=== PATIENT | male | born 2000 | race Caucasian/White ===

== ENCOUNTER 2021-10-05 15:26 | Inpatient (IN) | payer OTHER ==
[~2021-10-05] VITALS: Ht 177.8 cm; Wt 75.3 kg
[2021-10-05 17:30] VITALS: BP 126/62
[2021-10-05] MEDS ORDERED: MELATONIN 3 MG TABLET PO PRN (17:30)
[2021-10-05] MEDS ORDERED: METHOCARBAMOL 500 MG TABLET PO PRN (17:45)
[2021-10-05] MEDS ORDERED: ONDANSETRON HCL 4 MG TABLET PO PRN (17:45)
[2021-10-05] MEDS ORDERED: OxyCODONE HCL 10 MG IR TABLET PO PRN (17:45)
[2021-10-05] MEDS ORDERED: OxyCODONE HCL 5 MG IR TABLET PO PRN (17:45)
[2021-10-05] MEDS ORDERED: MAGNESIUM HYDROXIDE SUSPENSION 30 ML UDCUP PO PRN (17:45)
[2021-10-05 18:50] VITALS: BP 126/62
[2021-10-05] MEDS: ACETAMINOPHEN 325 MG TABLET PO SCH ×2 (20:44→23:19)
[2021-10-05] MEDS: -LIDODERM PATCH NOTE- MISC SCH (21:54)
[2021-10-05] MEDS: DOCUSATE SODIUM 100 MG CAPSULE PO SCH (21:54)
[2021-10-05] MEDS: SENNA 187 MG TABLET PO SCH (21:54)
[2021-10-05] MEDS: GABAPENTIN 100 MG CAPSULE PO SCH (21:54)
[2021-10-05] MEDS: ETHYL ALCOHOL 62% ANTISEPTIC NASAL SANITIZER 0.6 ML AMPUL NASAL SCH (21:54)
[2021-10-05] MEDS: FAMOTIDINE 20 MG TABLET PO SCH (21:55)
[2021-10-05] MEDS: HEPARIN SODIUM,PORCINE 5,000 UNITS/ML VIAL SQ SCH (21:55)
[2021-10-06] VITALS: BP 112/54
[2021-10-06] MEDS: ACETAMINOPHEN 325 MG TABLET PO SCH ×4 (06:06→23:34)
[2021-10-06 07:25] LABS: EOSINOPHILS % (AUTO) 3.5 % (1.0-6.0); HEMATOCRIT 28.2 % (41-53); HEMOGLOBIN 9.7 g/dL (13.5-17.5); LYMPHOCYTES % (AUTO) 10.5 % (22.0-44.0); MEAN CORPUSCULAR HEMOGLOBIN 29.9 pg (26.0-34.0); MEAN CORPUSCULAR HGB CONC 34.5 G/dL (31.0-37.0); MEAN CORPUSCULAR VOLUME 87 fL (80-100); MONOCYTES % (AUTO) 9.2 % (2.0-9.0); NEUTROPHILS % (AUTO) 76.5 % (40.0-70.0); PLATELET COUNT (AUTO) 352 K/uL (150-450); RED BLOOD CELL COUNT(AUTO) 3.25 MIL/uL (4.50-5.90); RED CELL DISTRIBUTION WIDTH 13.6 % (11.5-14.5)
[2021-10-06 07:26] LABS: BASOPHILS % (AUTO) 0.3 % (0.0-2.0); LYMPHOCYTES # (AUTO) 0.8 K/uL (1.0-4.8); MONOCYTES # (AUTO) 0.7 K/uL (0.1-1.0); NEUTROPHILS # (AUTO) 5.6 K/uL (1.8-7.7)
[2021-10-06 07:31] LABS: ALANINE AMINOTRANSFERASE 140 U/L (12-78); ALBUMIN 3.5 g/dL (3.4-5.0); ALKALINE PHOSPHATASE 57 U/L (46-116); ANION GAP 9 mmol/L (8-16); ASPARTATE AMINOTRANSFERASE 50 U/L (15-37); BILIRUBIN,TOTAL 1.9 mg/dL (0.1-1.0); CALCIUM, TOTAL 9.4 mg/dL (8.8-10.5); CARBON DIOXIDE 27 mmol/L (22-29); CHLORIDE 99 mmol/L (98-107); CREATININE 0.81 mg/dL (0.60-1.30); GLOMERULAR FILTR. RATE CALC > 60 mL/min (>60); GLUCOSE,RANDOM 98 mg/dL (70-110); SODIUM SERUM 135 mmol/L (136-145); TOTAL PROTEIN, SERUM 7.8 g/dL (6.4-8.2); UREA NITROGEN, BLOOD 22 mg/dL (7-18)
[2021-10-06] MEDS: DOCUSATE SODIUM 100 MG CAPSULE PO SCH ×2 (08:02→21:31)
[2021-10-06] MEDS: ASCORBIC ACID 500 MG TABLET PO SCH (08:03)
[2021-10-06] MEDS: ETHYL ALCOHOL 62% ANTISEPTIC NASAL SANITIZER 0.6 ML AMPUL NASAL SCH ×2 (08:03→21:30)
[2021-10-06] MEDS: ZINC SULFATE 220 MG CAPSULE PO SCH (08:03)
[2021-10-06] MEDS: GABAPENTIN 100 MG CAPSULE PO SCH ×3 (08:03→21:31)
[2021-10-06] MEDS: LIDOCAINE 5% TRANSDERMAL PATCH TD SCH (08:04)
[2021-10-06] MEDS: HEPARIN SODIUM,PORCINE 5,000 UNITS/ML VIAL SQ SCH ×3 (08:04→21:32)
[2021-10-06 08:05] VITALS: BP 127/60
[2021-10-06 16:30] VITALS: BP 110/50
[2021-10-06] MEDS: -LIDODERM PATCH NOTE- MISC SCH (21:30)
[2021-10-06] MEDS: SENNA 187 MG TABLET PO SCH (21:31)
[2021-10-06] MEDS: FAMOTIDINE 20 MG TABLET PO SCH (21:31)
[2021-10-07] VITALS: BP 112/52
[2021-10-07] MEDS: ACETAMINOPHEN 325 MG TABLET PO SCH ×4 (06:34→23:09)
[2021-10-07 08:00] VITALS: BP 119/54
[2021-10-07] MEDS: ETHYL ALCOHOL 62% ANTISEPTIC NASAL SANITIZER 0.6 ML AMPUL NASAL SCH ×2 (08:52→20:48)
[2021-10-07] MEDS: ASCORBIC ACID 500 MG TABLET PO SCH (08:53)
[2021-10-07] MEDS: ZINC SULFATE 220 MG CAPSULE PO SCH (08:53)
[2021-10-07] MEDS: GABAPENTIN 100 MG CAPSULE PO SCH ×3 (08:53→20:49)
[2021-10-07] MEDS: LIDOCAINE 5% TRANSDERMAL PATCH TD SCH (08:54)
[2021-10-07] MEDS: HEPARIN SODIUM,PORCINE 5,000 UNITS/ML VIAL SQ SCH ×3 (08:54→20:49)
[2021-10-07] MEDS: DOCUSATE SODIUM 100 MG CAPSULE PO SCH ×2 (09:00→20:48)
[2021-10-07 16:10] VITALS: BP 108/61
[2021-10-07] MEDS: -LIDODERM PATCH NOTE- MISC SCH (20:48)
[2021-10-07] MEDS: FAMOTIDINE 20 MG TABLET PO SCH (20:49)
[2021-10-07] MEDS: SENNA 187 MG TABLET PO SCH (20:49)
[2021-10-08] VITALS: BP 122/62
[2021-10-08] MEDS: ACETAMINOPHEN 325 MG TABLET PO SCH ×4 (06:12→23:35)
[2021-10-08] MEDS: ASCORBIC ACID 500 MG TABLET PO SCH (08:56)
[2021-10-08] MEDS: ETHYL ALCOHOL 62% ANTISEPTIC NASAL SANITIZER 0.6 ML AMPUL NASAL SCH ×2 (08:56→21:19)
[2021-10-08] MEDS: DOCUSATE SODIUM 100 MG CAPSULE PO SCH ×3 (08:56→21:00)
[2021-10-08] MEDS: GABAPENTIN 100 MG CAPSULE PO SCH ×3 (08:56→21:19)
[2021-10-08] MEDS: HEPARIN SODIUM,PORCINE 5,000 UNITS/ML VIAL SQ SCH ×3 (08:56→21:19)
[2021-10-08] MEDS: ZINC SULFATE 220 MG CAPSULE PO SCH (08:56)
[2021-10-08] MEDS: LIDOCAINE 5% TRANSDERMAL PATCH TD SCH (08:57)
[2021-10-08 14:33] VITALS: BP 117/69
[2021-10-08 16:07] VITALS: BP 110/62
[2021-10-08] MEDS: SENNA 187 MG TABLET PO SCH (21:19)
[2021-10-08] MEDS: -LIDODERM PATCH NOTE- MISC SCH (21:19)
[2021-10-08] MEDS: FAMOTIDINE 20 MG TABLET PO SCH (21:19)
[2021-10-09] VITALS: BP 119/52
[2021-10-09] MEDS: ACETAMINOPHEN 325 MG TABLET PO SCH ×4 (06:11→22:57)
[2021-10-09 07:30] VITALS: BP 109/63
[2021-10-09] MEDS: ETHYL ALCOHOL 62% ANTISEPTIC NASAL SANITIZER 0.6 ML AMPUL NASAL SCH ×2 (08:29→20:51)
[2021-10-09] MEDS: ASCORBIC ACID 500 MG TABLET PO SCH (08:30)
[2021-10-09] MEDS: GABAPENTIN 100 MG CAPSULE PO SCH ×3 (08:30→20:51)
[2021-10-09] MEDS: ZINC SULFATE 220 MG CAPSULE PO SCH (08:30)
[2021-10-09] MEDS: HEPARIN SODIUM,PORCINE 5,000 UNITS/ML VIAL SQ SCH ×3 (08:30→20:52)
[2021-10-09] MEDS: LIDOCAINE 5% TRANSDERMAL PATCH TD SCH (08:31)
[2021-10-09] MEDS: DOCUSATE SODIUM 100 MG CAPSULE PO SCH ×2 (08:31→20:51)
[2021-10-09 16:30] VITALS: BP 104/65
[2021-10-09] MEDS: FAMOTIDINE 20 MG TABLET PO SCH (20:51)
[2021-10-09] MEDS: SENNA 187 MG TABLET PO SCH (20:51)
[2021-10-09] MEDS: -LIDODERM PATCH NOTE- MISC SCH (20:52)
[2021-10-10] VITALS: BP 108/57
[2021-10-10] MEDS: ACETAMINOPHEN 325 MG TABLET PO SCH (05:30)
[2021-10-10 07:03] LABS: HEMATOCRIT 28.1 % (41-53); HEMOGLOBIN 9.4 g/dL (13.5-17.5); MEAN CORPUSCULAR HEMOGLOBIN 29.1 pg (26.0-34.0); MEAN CORPUSCULAR HGB CONC 33.6 G/dL (31.0-37.0); MEAN CORPUSCULAR VOLUME 87 fL (80-100); PLATELET COUNT (AUTO) 393 K/uL (150-450); RED BLOOD CELL COUNT(AUTO) 3.24 MIL/uL (4.50-5.90); RED CELL DISTRIBUTION WIDTH 14.2 % (11.5-14.5)
[2021-10-10 07:18] LABS: ALANINE AMINOTRANSFERASE 63 U/L (12-78); ALBUMIN 3.5 g/dL (3.4-5.0); ALKALINE PHOSPHATASE 81 U/L (46-116); ANION GAP 7 mmol/L (8-16); ASPARTATE AMINOTRANSFERASE 24 U/L (15-37); BILIRUBIN,TOTAL 1.3 mg/dL (0.1-1.0); CALCIUM, TOTAL 9.3 mg/dL (8.8-10.5); CARBON DIOXIDE 29 mmol/L (22-29); CHLORIDE 103 mmol/L (98-107); CREATININE 0.82 mg/dL (0.60-1.30); GLOMERULAR FILTR. RATE CALC > 60 mL/min (>60); GLUCOSE,RANDOM 102 mg/dL (70-110); POTASSIUM 4.3 mmol/L (3.5-5.1); SODIUM SERUM 139 mmol/L (136-145); TOTAL PROTEIN, SERUM 7.6 g/dL (6.4-8.2); UREA NITROGEN, BLOOD 18 mg/dL (7-18)
[2021-10-10 08:07] LABS: BAND NEUTROPHILS % (MANUAL) 5 % (0-5); LYMPHOCYTES % (MANUAL) 15 % (22-44); MONOCYTES % (MANUAL) 4 % (2-9); SEGMENTED NEUTROPHILS % 76 % (40-70)
[2021-10-10] MEDS: ETHYL ALCOHOL 62% ANTISEPTIC NASAL SANITIZER 0.6 ML AMPUL NASAL SCH ×2 (08:10→20:14)
[2021-10-10] MEDS: ASCORBIC ACID 500 MG TABLET PO SCH (08:11)
[2021-10-10] MEDS: LIDOCAINE 5% TRANSDERMAL PATCH TD SCH (08:11)
[2021-10-10] MEDS: HEPARIN SODIUM,PORCINE 5,000 UNITS/ML VIAL SQ SCH ×3 (08:11→20:14)
[2021-10-10] MEDS: GABAPENTIN 100 MG CAPSULE PO SCH ×3 (08:11→20:13)
[2021-10-10] MEDS: ZINC SULFATE 220 MG CAPSULE PO SCH (08:11)
[2021-10-10] MEDS: DOCUSATE SODIUM 100 MG CAPSULE PO SCH ×2 (08:12→20:14)
[2021-10-10 08:39] VITALS: BP 123/59
[2021-10-10] MEDS: ACETAMINOPHEN 325 MG TABLET PO PRN (12:41)
[2021-10-10 16:53] VITALS: BP 107/62
[2021-10-10] MEDS: FAMOTIDINE 20 MG TABLET PO SCH (20:13)
[2021-10-10] MEDS: SENNA 187 MG TABLET PO SCH (20:14)
[2021-10-10] MEDS: -LIDODERM PATCH NOTE- MISC SCH (20:19)
[2021-10-11] VITALS: BP 112/58
[2021-10-11] MEDS: GABAPENTIN 100 MG CAPSULE PO SCH ×3 (07:54→19:52)
[2021-10-11] MEDS: ETHYL ALCOHOL 62% ANTISEPTIC NASAL SANITIZER 0.6 ML AMPUL NASAL SCH ×2 (07:54→19:51)
[2021-10-11] MEDS: HEPARIN SODIUM,PORCINE 5,000 UNITS/ML VIAL SQ SCH ×3 (07:55→19:52)
[2021-10-11] MEDS: ASCORBIC ACID 500 MG TABLET PO SCH (07:55)
[2021-10-11] MEDS: ZINC SULFATE 220 MG CAPSULE PO SCH (07:55)
[2021-10-11] MEDS: LIDOCAINE 5% TRANSDERMAL PATCH TD SCH (07:55)
[2021-10-11] MEDS: DOCUSATE SODIUM 100 MG CAPSULE PO SCH ×2 (07:56→19:51)
[2021-10-11 10:53] VITALS: BP 107/71
[2021-10-11 16:05] VITALS: BP 127/77
[2021-10-11] MEDS: SENNA 187 MG TABLET PO SCH (19:51)
[2021-10-11] MEDS: FAMOTIDINE 20 MG TABLET PO SCH (19:52)
[2021-10-11] MEDS: -LIDODERM PATCH NOTE- MISC SCH (19:53)
[2021-10-12] VITALS: BP 107/58
[2021-10-12] MEDS: ETHYL ALCOHOL 62% ANTISEPTIC NASAL SANITIZER 0.6 ML AMPUL NASAL SCH ×2 (05:52→20:08)
[2021-10-12] MEDS: HEPARIN SODIUM,PORCINE 5,000 UNITS/ML VIAL SQ SCH (05:52)
[2021-10-12] MEDS: ZINC SULFATE 220 MG CAPSULE PO SCH (05:53)
[2021-10-12] MEDS: ASCORBIC ACID 500 MG TABLET PO SCH (05:53)
[2021-10-12] MEDS: GABAPENTIN 100 MG CAPSULE PO SCH ×3 (05:53→20:09)
[2021-10-12] MEDS: LIDOCAINE 5% TRANSDERMAL PATCH TD SCH (05:54)
[2021-10-12] MEDS: DOCUSATE SODIUM 100 MG CAPSULE PO SCH ×2 (09:00→20:10)
[2021-10-12 10:15] VITALS: BP 129/64
[2021-10-12 16:30] VITALS: BP 113/55
[2021-10-12] MEDS: FAMOTIDINE 20 MG TABLET PO SCH (20:10)
[2021-10-12] MEDS: SENNA 187 MG TABLET PO SCH (20:10)
[2021-10-12] MEDS: -LIDODERM PATCH NOTE- MISC SCH (20:12)
[2021-10-13] VITALS: BP 121/60
[2021-10-13] MEDS: ZINC SULFATE 220 MG CAPSULE PO SCH (07:54)
[2021-10-13] MEDS: ETHYL ALCOHOL 62% ANTISEPTIC NASAL SANITIZER 0.6 ML AMPUL NASAL SCH ×2 (07:54→20:21)
[2021-10-13] MEDS: ASCORBIC ACID 500 MG TABLET PO SCH (07:54)
[2021-10-13] MEDS: GABAPENTIN 100 MG CAPSULE PO SCH ×3 (07:54→20:21)
[2021-10-13] MEDS: ASPIRIN 325 MG TABLET PO SCH (07:54)
[2021-10-13] MEDS: ACETAMINOPHEN 325 MG TABLET PO PRN (07:54)
[2021-10-13] MEDS: LIDOCAINE 5% TRANSDERMAL PATCH TD SCH (07:55)
[2021-10-13 08:00] VITALS: BP 114/56
[2021-10-13] MEDS: DOCUSATE SODIUM 100 MG CAPSULE PO SCH ×2 (08:01→20:22)
[2021-10-13 16:36] VITALS: BP 118/58
[2021-10-13] MEDS: FAMOTIDINE 20 MG TABLET PO SCH (20:21)
[2021-10-13] MEDS: -LIDODERM PATCH NOTE- MISC SCH (20:22)
[2021-10-13] MEDS: SENNA 187 MG TABLET PO SCH (20:22)
[2021-10-14] VITALS: BP 108/53
[2021-10-14] MEDS: ASPIRIN 325 MG TABLET PO SCH (07:42)
[2021-10-14] MEDS: ETHYL ALCOHOL 62% ANTISEPTIC NASAL SANITIZER 0.6 ML AMPUL NASAL SCH ×2 (07:42→20:54)
[2021-10-14] MEDS: DOCUSATE SODIUM 100 MG CAPSULE PO SCH (07:43)
[2021-10-14] MEDS: LIDOCAINE 5% TRANSDERMAL PATCH TD SCH (07:43)
[2021-10-14] MEDS: GABAPENTIN 100 MG CAPSULE PO SCH ×3 (07:43→20:54)
[2021-10-14] MEDS: ZINC SULFATE 220 MG CAPSULE PO SCH (07:43)
[2021-10-14] MEDS: ASCORBIC ACID 500 MG TABLET PO SCH (07:43)
[2021-10-14 10:11] VITALS: BP 115/55
[2021-10-14 16:32] VITALS: BP 102/53
[2021-10-14] MEDS: FAMOTIDINE 20 MG TABLET PO SCH (20:54)
[2021-10-14] MEDS: -LIDODERM PATCH NOTE- MISC SCH (21:02)
[2021-10-15 00:17] VITALS: BP 116/56
[2021-10-15] MEDS: ETHYL ALCOHOL 62% ANTISEPTIC NASAL SANITIZER 0.6 ML AMPUL NASAL SCH ×2 (08:29→20:56)
[2021-10-15] MEDS: GABAPENTIN 100 MG CAPSULE PO SCH ×3 (08:29→20:56)
[2021-10-15] MEDS: ASCORBIC ACID 500 MG TABLET PO SCH (08:29)
[2021-10-15] MEDS: ZINC SULFATE 220 MG CAPSULE PO SCH (08:29)
[2021-10-15] MEDS: LIDOCAINE 5% TRANSDERMAL PATCH TD SCH (08:30)
[2021-10-15] MEDS: ASPIRIN 325 MG TABLET PO SCH (08:44)
[2021-10-15 10:20] VITALS: BP 108/51
[2021-10-15 16:30] VITALS: BP 122/55
[2021-10-15] MEDS: FAMOTIDINE 20 MG TABLET PO SCH (20:56)
[2021-10-15] MEDS: -LIDODERM PATCH NOTE- MISC SCH (21:04)
[2021-10-16 00:27] VITALS: BP 109/61
[2021-10-16] MEDS: ZINC SULFATE 220 MG CAPSULE PO SCH (08:16)
[2021-10-16] MEDS: ETHYL ALCOHOL 62% ANTISEPTIC NASAL SANITIZER 0.6 ML AMPUL NASAL SCH ×2 (08:16→20:08)
[2021-10-16] MEDS: ASPIRIN 325 MG TABLET PO SCH (08:16)
[2021-10-16 08:17] VITALS: BP 105/49
[2021-10-16] MEDS: GABAPENTIN 100 MG CAPSULE PO SCH ×3 (08:17→20:08)
[2021-10-16] MEDS: ASCORBIC ACID 500 MG TABLET PO SCH (08:17)
[2021-10-16] MEDS: LIDOCAINE 5% TRANSDERMAL PATCH TD SCH (08:17)
[2021-10-16] MEDS: ACETAMINOPHEN 325 MG TABLET PO PRN (08:17)
[2021-10-16 16:26] VITALS: BP 112/62
[2021-10-16] MEDS: FAMOTIDINE 20 MG TABLET PO SCH (20:08)
[2021-10-16] MEDS: -LIDODERM PATCH NOTE- MISC SCH (20:08)
[2021-10-17] VITALS: BP 112/68
[2021-10-17] MEDS: LIDOCAINE 5% TRANSDERMAL PATCH TD SCH (08:43)
[2021-10-17] MEDS: ASPIRIN 325 MG TABLET PO SCH (08:44)
[2021-10-17] MEDS: GABAPENTIN 100 MG CAPSULE PO SCH (08:44)
[2021-10-17] MEDS: ASCORBIC ACID 500 MG TABLET PO SCH (08:44)
[2021-10-17] MEDS: ZINC SULFATE 220 MG CAPSULE PO SCH (08:44)
[2021-10-17] MEDS: ETHYL ALCOHOL 62% ANTISEPTIC NASAL SANITIZER 0.6 ML AMPUL NASAL SCH (08:44)
[2021-10-17 09:19] VITALS: BP 121/57
[2021-10-17] MEDS ORDERED: GABA-1216 PO (09:44)
[2021-10-17] MEDS ORDERED: ACET325T51 PO (09:44)
[2021-10-17] MEDS ORDERED: ASPI-1026 PO (09:44)
[2021-10-17] MEDS ORDERED: LIDO700A30 TD (09:44)
== END 2021-10-17 15:00 | disposition home or self-care (01) | DRG 964 ==
LOC: 2WR 17:15
PROVIDERS: ADMIT Physical Medicine & Rehabilitation; ATTEND Physical Medicine & Rehabilitation
DX: S72.21XA Displaced subtrochanteric fracture of right femur, initial encounter for closed fracture (principal); S32.431A Displaced fracture of anterior column [iliopubic] of right acetabulum, initial encounter for closed fracture; S32.019A Unspecified fracture of first lumbar vertebra, initial encounter for closed fracture; S36.031A Moderate laceration of spleen, initial encounter; S32.029A Unspecified fracture of second lumbar vertebra, initial encounter for closed fracture; S32.039A Unspecified fracture of third lumbar vertebra, initial encounter for closed fracture; J93.9 Pneumothorax, unspecified; K59.00 Constipation, unspecified; S42.102A Fracture of unspecified part of scapula, left shoulder, initial encounter for closed fracture; W18.39XA Other fall on same level, initial encounter; Y93.89 Activity, other specified; Y92.89 Other specified places as the place of occurrence of the external cause; Y99.8 Other external cause status; G47.00 Insomnia, unspecified; D64.9 Anemia, unspecified; G89.18 Other acute postprocedural pain
CPT/HCPCS: 80053; 85025; 87081; 92507; 92523; 97110; 97112; 97116; 97150; 97163; 97530; 97535; 99366; J1644